=== PATIENT | male | born 1985 | race Caucasian/White ===

== ENCOUNTER 2021-02-10 20:17 | Emergency (ER) | payer SELFPAY ==
[2021-02-10 20:37] LABS: Urine Blood Negative (Negative); Urine Glucose Negative (Negative); Urine Protein Negative (Negative); Urine Specific Gravity <=1.005 (1.005-1.030); Urine pH 6.5 (5.0-7.0)
[2021-02-10 20:38] LABS: Basophils % 0.3 % (0-1.3); Hematocrit 41.3 % (39.6-49.0); Lymphocytes % 26.6 % (15.3-44.8); MPV 7.5 fL (7.6-11.3)
[2021-02-10 20:50] LABS: Protime INR 0.99
[2021-02-10 20:55] LABS: Barbiturates NEGATIVE (NEGATIVE); Benzodiazepines NEGATIVE (NEGATIVE); Cocaine NEGATIVE (NEGATIVE); METHAMPHETAM NEGATIVE (NEGATIVE); Methadone NEGATIVE (NEGATIVE); Opiates NEGATIVE (NEGATIVE); Phencyclidine NEGATIVE (NEGATIVE); THC Cannibis NEGATIVE (NEGATIVE)
[2021-02-10] MEDS ORDERED: NA CHLORIDE 0.9% 1,000 ML ONE (20:58)
[2021-02-10] MEDS ORDERED: ONDANSETRON 4 MG/2 ML VIAL ONE (20:58)
[2021-02-10 21:01] LABS: ALT/SGPT 55 U/L (12-78); AST/SGOT 37 U/L (15-37); Albumin 3.5 g/dL (3.4-5.0); Alkaline Phosphatase 51 U/L (45-117); BUN Blood Urea Nitrogen 9 mg/dL (7-18); Bicarbonate 22 mmol/L (21-32); Bilirubin Direct 0.1 mg/dL (0-0.2); Bilirubin Total 0.3 mg/dL (0.2-1.0); Glucose Level 121 mg/dL (74-106); Potassium 3.3 mmol/L (3.5-5.1); Protein, Total 7.2 g/dL (6.4-8.2); Sodium Level 143 mmol/L (136-145)
--- NOTE | 2021-02-11 03:47 | EDPHYS ---
Physician Documentation [facility] Name: Elias Dillard Age: 35 yrs Sex: Male : 1985 Arrival Date: 02/10/2021 Time: 20:21 Bed 6 Private MD: ED Physician Moise Williamson HPI: 02/10 20:42 This 35 yrs old Male presents to ER via EMS with complaints of overdose. rn 20:42 The patient presents with decreased responsiveness. Onset: The symptoms/episode rn began/occurred at an unknown time. Current symptoms: In the emergency department the patient's symptoms are unchanged from the initial presentation. It is unknown whether or not the patient has had similar symptoms in the past. Per EMS report, unknown specific time of ingestion, but and patient reported approx 10 seroquel and ETOH after arguing with . UNknown at this time if suicidal ideation or intentional self-harm. . Historical: - Allergies: 20:36 No Known Allergies; bb - Home Meds: 20:36 Seroquel Oral [Active]; Prozac Oral [Active]; bb - PMHx: 20:36 Depression; bb - PSHx: 20:36 Unable to obtain; bb - Immunization history:: Adult Immunizations unknown. - Social history:: Smoking status: unknown. - History obtained from: EMS. - Unable to obtain history due to: altered mental status. ROS: 20:42 Unable to obtain ROS due to altered mental status. rn Exam: 20:42 Constitutional: This is a well developed, well nourished patient who is awake, but rn somnolent Head/Face: Normocephalic, atraumatic. Eyes: Pupils equal round and reactive to light, extra-ocular motions intact. Lids and lashes normal. Conjunctiva and sclera are non-icteric and not injected. Cornea within normal limits. Periorbital areas with no swelling, redness, or edema. ENT: dry MM Cardiovascular: Regular rate and rhythm . No pulse deficits. Respiratory: No increased work of breathing, no retractions or nasal flaring. Abdomen/GI: soft, non-tender Skin: Warm, dry MS/ Extremity: Pulses equal, no cyanosis. Neurovascular intact. Full, normal range of motion. Equal circumference. Neuro: Awake, somnolent, moves all 4 extremities, + slurred speech. Vital Signs: 20:30 BP 117 / 73; Pulse 83; Resp 14 S; Temp 97.9(O); Pulse Ox 94% on R/A; Weight 81.65 kg bb (R); Height 5 ft. 8 in. (172.72 cm) (R); Pain 0/10; 21:00 BP 91 / 54; Pulse 84; Resp 14; Pulse Ox 97% on 2 lpm NC; jb4 21:45 BP 95 / 57; Pulse 95; Resp 20; Pulse Ox 99% on 2 lpm NC; jb4 22:45 BP 107 / 71; Pulse 72; Resp 16; jb4 23:15 BP 99 / 73; Pulse 72; Resp 18; Pulse Ox 97% on 2 lpm NC; jb4 02/11 00:00 BP 99 / 64; Pulse 70; Resp 17; Pulse Ox 99% on 2 lpm NC; jb4 00:45 BP 97 / 70; Pulse 72; Resp 19; Pulse Ox 98% on 2 lpm NC; jb4 01:30 BP 108 / 73; Pulse 62; Resp 16; Pulse Ox 98% on 2 lpm NC; jb4 02:15 BP 92 / 60; Pulse 68; Resp 17; Pulse Ox 96% on 2 lpm NC; jb4 03:30 BP 126 / 96; Pulse 72; Resp 16; Pulse Ox 100% on R/A; jb4 02/10 20:30 Body Mass Index 27.37 (81.65 kg, 172.72 cm) bb MDM: 02/10 20:25 Patient medically screened. rn 02/11 03:44 Differential Diagnosis: electrolyte abnormality, alcohol intoxication, volume rn depletion. Data reviewed: vital signs, nurses notes, lab test result(s), EKG, and as a result, I will discharge patient. Counseling: I had a detailed discussion with the patient and/or guardian regarding: the historical points, exam findings, and any diagnostic results supporting the discharge/admit diagnosis, lab results, the need for outpatient follow up, to return to the emergency department if symptoms worsen or persist or if there are any questions or concerns that arise at home. Response to treatment: the patient's symptoms have markedly improved after treatment, and as a result, I will discharge patient. Special discussion: I discussed with the patient/guardian in detail that at this point there is no indication for admission to the hospital. It is understood, however, that if the symptoms persist or worsen the patient needs to return immediately for re-evaluation. ED course: Pt now sober, wide awake, doesn't remember really what happened earlier, denies having suicidal ideation, reports was drunk and made a poor decision. Denies suicidal ideation or homicidal ideation. Is going to call for a ride. . 02/10 20:26 Order name: Acetaminophen rn 02/10 20:26 Order name: Basic Metabolic Panel; Complete Time: : 02/10 20:26 Order name: CBC with Diff; Complete Time: : 02/10 20:26 Order name: ETOH Level; Complete Time: : 02/10 20:26 Order name: Hepatic Function; Complete Time: : 02/10 20:26 Order name: PT-INR; Complete Time: : 02/10 20:26 Order name: Ptt, Activated; Complete Time: : 02/10 20:26 Order name: Salicylate; Complete Time: : 02/10 20:26 Order name: Urine Drug Screen; Complete Time: : 02/10 20:26 Order name: Acetaminophen Level; Complete Time: 22: [facility]DE 02/10 20:37 Order name: Urine Dipstick-Ancillary; Complete Time: : [facility] 02/10 22:21 Order name: SARS-COV-2 RT PCR; Complete Time: 22: [facility] 02/10 20:26 Order name: EKG; Complete Time: 20:27 02/10 20:26 Order name: EKG - Nurse/Tech; Complete Time: 20:49 02/10 20:26 Order name: IV Saline Lock; Complete Time: 20:37 02/10 20:26 Order name: Labs collected and sent; Complete Time: 20:37 02/10 20:26 Order name: Suicide Screening (Gregory); Complete Time: 23:22 02/10 20:26 Order name: Urine Dipstick-Ancillary (obtain specimen); Complete Time: 20:37 rn Administered Medications: 02/10 20:31 CANCELLED (unknown ingestion time and not alert enough): Charcoal (activated charcoal) rn Suspension 50 grams PO once 20:49 Drug: NS 0.9% 1000 ml Route: IV; Rate: 1000 ml; Site: right antecubital; bb 21:45 Follow up: Response: No adverse reaction; IV Status: Completed infusion; IV Intake: jb4 1000ml 20:49 Drug: Zofran (Ondansetron) 4 mg Route: IVP; Site: right antecubital; bb 21:15 Follow up: Response: No adverse reaction; Marked relief of symptoms jb4 Disposition: 02/11/21 03:46 Discharged to Home. Impression: Alcohol abuse with intoxication, Seroquel overdose. - Condition is Stable. - Discharge Instructions: Alcohol Intoxication, Drug Overdose. - Medication Reconciliation Form, Thank You Letter, Antibiotic Education, Prescription Opioid Use form. - Follow up: Private Physician; When: As needed; Reason: Recheck today's complaints, Re-evaluation by your physician. - Problem is new. - Symptoms have improved. Signatures: Dispatcher [employer] EDMS Lee Ann Junior RN RN bb Nieto, Roman, MD MD rn Bryson, James, RN RN jb4 Corrections: (The following items were deleted from the chart) 20:31 20:26 Charcoal (activated charcoal) Suspension 50 grams PO once ordered. rn rn 21:28 20:29 CORONAVIRUS+MR.LAB.BRZ ordered. [facility] EDDE 02/11 04:41 03:46 02/11/2021 03:46 Discharged to Home. Impression: Alcohol abuse with intoxication; jb4 Seroquel overdose. Condition is Stable. Forms are Medication Reconciliation Form, Thank You Letter, Antibiotic Education, Prescription Opioid Use. Follow up: Private Physician; When: As needed; Reason: Recheck today's complaints, Re-evaluation by your physician. Problem is new. Symptoms have improved. rn
--- NOTE | 2021-02-11 03:47 | ER ---
Nurse's Notes [facility] Name: Elias Dillard Age: 35 yrs Sex: Male : 1985 Arrival Date: 02/10/2021 Time: 20:21 Bed 6 Private MD: Diagnosis: Alcohol abuse with intoxication;Seroquel overdose Presentation: 02/10 20:30 Chief complaint: EMS states: they were toned out for report of pt having overdosed on bb Seroquel 100 mg he took 10 and he also has been drinking alcohol. Pt was arguing with and overdosed in a suicide attempt which pt has a past history of similar attempts. Coronavirus screen: At this time, the client does not indicate any symptoms associated with coronavirus-19. Ebola Screen: No symptoms or risks identified at this time. Initial Sepsis Screen: Does the patient meet any 2 criteria? No. Patient's initial sepsis screen is negative. Does the patient have a suspected source of infection? No. Patient's initial sepsis screen is negative. Risk Assessment: Do you want to hurt yourself or someone else? Patient reports desire/thoughts of hurting themselves or someone else. Provider notified. Onset of symptoms was February 10, 2021. 20:30 Method Of Arrival: EMS: [facility] 20:30 Acuity: IVAN 2 bb Historical: - Allergies: 20:36 No Known Allergies; bb - Home Meds: 20:36 Seroquel Oral [Active]; Prozac Oral [Active]; bb - PMHx: 20:36 Depression; bb - PSHx: 20:36 Unable to obtain; bb - Immunization history:: Adult Immunizations unknown. - Social history:: Smoking status: unknown. - History obtained from: EMS. - Unable to obtain history due to: altered mental status. Screenin:45 Abuse screen: Denies threats or abuse. Nutritional screening: No deficits noted. jb4 Tuberculosis screening: No symptoms or risk factors identified. Fall Risk None identified. Assessment: 20:30 General: Appears in no apparent distress. Lethargic. Behavior is Lethargic. Pain: jb4 Denies pain. Neuro: Level of Consciousness is lethargic, Oriented to person, place, time, situation, Speech is slurred. Cardiovascular: Patient's skin is warm and dry. Respiratory: Airway is patent Respiratory effort is even, unlabored, Respiratory pattern is regular, symmetrical. GI: No signs and/or symptoms were reported involving the gastrointestinal system. : No signs and/or symptoms were reported regarding the genitourinary system. EENT: No signs and/or symptoms were reported regarding the EENT system. Derm: Skin is intact, Skin is pink, warm \\T\\ dry. Musculoskeletal: Circulation, motion, and sensation intact. Range of motion: intact in all extremities. 21:00 Reassessment: spoke to Poison Control with the following recommendations: Monitor for bb seizures give benzos if needed, monitor and replace potassium levels, monitor LFTs and given Acetadote if LFTs and acetaminophen level is elevated. Give symptomatic support. Case # [id number]. 21:30 Reassessment: Pt is resting in bed with eyes closed, remains lethargic. Respirations jb4 are even and unlabored. remains on 2L NC. 22:30 Reassessment: Patient appears in no apparent distress at this time. No changes from jb4 previously documented assessment. Patient and/or family updated on plan of care and expected duration. Pain level reassessed. 23:00 Reassessment: [phone] Gay Cho. ca1 02/11 00:00 Reassessment: Patient appears in no apparent distress at this time. Patient and/or jb4 family updated on plan of care and expected duration. Pain level reassessed. Patient is alert, oriented x 3, equal unlabored respirations, skin warm/dry/pink. 01:30 Reassessment: Patient appears in no apparent distress at this time. Patient and/or jb4 family updated on plan of care and expected duration. Pain level reassessed. Patient is alert, oriented x 3, equal unlabored respirations, skin warm/dry/pink. Pt is denying that overdose was a suicide attempt. states " I was just tired of arguing and wanted to sleep.". 02:30 Reassessment: Pt is resting with eyes closed, respirations are even and unlabored with jb4 no s/s of pain or distress noted. 03:30 Reassessment: Patient appears in no apparent distress at this time. Patient and/or jb4 family updated on plan of care and expected duration. Pain level reassessed. Patient is alert, oriented x 3, equal unlabored respirations, skin warm/dry/pink. Pt denies suicidal ideations at this time. 04:30 Reassessment: Patient appears in no apparent distress at this time. Patient and/or jb4 family updated on plan of care and expected duration. Pain level reassessed. Patient is alert, oriented x 3, equal unlabored respirations, skin warm/dry/pink. Vital Signs: 02/10 20:30 BP 117 / 73; Pulse 83; Resp 14 S; Temp 97.9(O); Pulse Ox 94% on R/A; Weight 81.65 kg bb (R); Height 5 ft. 8 in. (172.72 cm) (R); Pain 0/10; 21:00 BP 91 / 54; Pulse 84; Resp 14; Pulse Ox 97% on 2 lpm NC; jb4 21:45 BP 95 / 57; Pulse 95; Resp 20; Pulse Ox 99% on 2 lpm NC; jb4 22:45 BP 107 / 71; Pulse 72; Resp 16; jb4 23:15 BP 99 / 73; Pulse 72; Resp 18; Pulse Ox 97% on 2 lpm NC; jb4 02/11 00:00 BP 99 / 64; Pulse 70; Resp 17; Pulse Ox 99% on 2 lpm NC; jb4 00:45 BP 97 / 70; Pulse 72; Resp 19; Pulse Ox 98% on 2 lpm NC; jb4 01:30 BP 108 / 73; Pulse 62; Resp 16; Pulse Ox 98% on 2 lpm NC; jb4 02:15 BP 92 / 60; Pulse 68; Resp 17; Pulse Ox 96% on 2 lpm NC; jb4 03:30 BP 126 / 96; Pulse 72; Resp 16; Pulse Ox 100% on R/A; jb4 02/10 20:30 Body Mass Index 27.37 (81.65 kg, 172.72 cm) ED Course: 02/10 20:21 Patient arrived in ED. mw2 20:25 Moise Williamson MD is Attending Physician. rn 20:30 Arm band placed on Patient placed in an exam room, on a stretcher, on oxygen, on bb engine monitor, on pulse oximetry. 20:30 Maintain EMS IV. Dressing intact. Good blood return noted. Site clean \\T\\ dry. Gauge \\T\\ bb site: 18 g R AC. 20:30 Initial lab(s) drawn, by me, sent to lab. bb 20:35 Triage completed. bb 20:45 Patient has correct armband on for positive identification. Placed in gown. Bed in low jb4 position. Call light in reach. Side rails up X 1. site monitor on. Pulse ox on. NIBP on. 23:21 Ric Grover, RN is Primary Nurse. jb4 02/11 04:40 No provider procedures requiring assistance completed. IV discontinued, intact, jb4 bleeding controlled, No redness/swelling at site. Pressure dressing applied. Administered Medications: 02/10 20:31 CANCELLED (unknown ingestion time and not alert enough): Charcoal (activated charcoal) rn Suspension 50 grams PO once 20:49 Drug: NS 0.9% 1000 ml Route: IV; Rate: 1000 ml; Site: right antecubital; bb 21:45 Follow up: Response: No adverse reaction; IV Status: Completed infusion; IV Intake: jb4 1000ml 20:49 Drug: Zofran (Ondansetron) 4 mg Route: IVP; Site: right antecubital; bb 21:15 Follow up: Response: No adverse reaction; Marked relief of symptoms jb4 Intake: 21:45 IV: 1000ml; Total: 1000ml. jb4 Outcome: 02/11 03:46 Discharge ordered by . rn 04:40 Discharged to home ambulatory, with family. jb4 04:40 Condition: stable 04:40 Discharge instructions given to patient, Instructed on discharge instructions, follow up and referral plans. Demonstrated understanding of instructions, follow-up care. 04:41 Patient left the ED. jb4 Signatures: Lee Ann Junior RN RN bb Nieto, Roman, MD MD rn Bryson, James, RN RN jb4 Law Russell mw2 Meghan Appiah RN RN ca1 Corrections: (The following items were deleted from the chart) 02: 01:30 Reassessment: Patient appears in no apparent distress at this time. Patient jb4 and/or family updated on plan of care and expected duration. Pain level reassessed. Patient is alert, oriented x 3, equal unlabored respirations, skin warm/dry/pink. jb4
[2021-02-11 04:48] VITALS: TEMP 97.9
[2021-02-11 05:01] VITALS: BP 126/96; O2SAT 100
== END 2021-02-11 04:41 | disposition home or self-care (01) ==
LOC: ER 20:17
DX: T43.591A Poisoning by other antipsychotics and neuroleptics, accidental (unintentional), initial encounter (principal); F10.129 Alcohol abuse with intoxication, unspecified; Z20.822 Contact with and (suspected) exposure to COVID-19; F32.9 Major depressive disorder, single episode, unspecified; Y90.8 Blood alcohol level of 240 mg/100 ml or more
CPT/HCPCS: 36415; 80048; 80076; 80307; 80320; 80329; 81003; 85025; 85610; 85730; 93005; 96361; 96374; 99285; J2405; J7030; U0003

== ENCOUNTER 2023-02-06 02:13 | Emergency (ER) | payer SELFPAY ==
--- OUTSIDE RECORDS SUMMARY | 2023-02-06 02:16 | XMS REPORT | Continuity of Care Document ---
:1985 Author Organization [facility] t Address [address] [place] [address] Care Team Providers Name Role Phone Pcp, Patient Does Not Have A Primary Care Physician [phone] Doctor Unassigned, Happy Attending Clinician Unavailable JOSE FALCON Attending Clinician Unavailable Jose Falcon DO Attending Clinician JOSE FALCON Admitting Clinician Unavailable Problems Condition Condition Condition Status Onset Resolution Last Treating Co mments Source Name Details Category Date Date Treatment Clinician Date No known No known Disease Unive rs active active ity of problems problems [facility] Allergies, Adverse Reactions, Alerts Allergy Allergy Status Severity Reaction(s) Onset Inactive Treating Comm ents Source Name Type Date Date Clinician NO KNOWN Drug Active Univers ALLERGIE Class ity of [facility] Social History Social Habit Start Date Stop Date Quantity Comments Source Exposure to Not sure [facility] SARS-CoV-2 (event) Medica l Branch Sex Assigned At [birth year] [facility] 00:00:00 00:00:00 [facility] Smoking Status Start Date Stop Date Source Unknown if ever smoked [facility] Medications Ordered Filled Start Stop Current Ordering Indication Dosage Frequency Signature Comments Components Source Medication Medication Date Date Medication? Clinician (SIG) Name Name meclizine 2018-0 Yes 25mg Take 1 Univer s 25 mg 7-26 tablet by ity of tablet 00:00: mouth [place] 00 every 6 Medical (six) Branch hours. meclizine 2018-0 Yes 25mg Take 1 Univer s 25 mg 7-26 tablet by ity of tablet 00:00: mouth [place] 00 every 6 Medical (six) Branch hours. pantoprazol 2015-0 Yes 40mg Take 1 Tab Univers e 4-11 by mouth ity of (PROTONIX) 00:00: daily. [place] 40 mg EC 00 Medical tablet Branch pantoprazol 0 Yes 40mg Take 1 Tab Univers e 4-11 by mouth ity of (PROTONIX) 00:00: daily. [place] 40 mg EC 00 Medical tablet Branch Vital Signs Vital Name Observation Time Observation Value Comments Source Systolic blood 2021-08-31 21:00:00 136 mm[Hg[facility] 2021-08-31 21:00:00 102 mm[Hg] [facility] Heart rate 2021-08-31 21:00:00 72 /min [facility] Body temperature 2021-08-31 21:00:00 37.17 Valerie [facility] Res[facility] rate 2021-08-31 21:00:00 14 /min [facility] Oxygen saturation in 2021-08-31 21:00:00 97 /min [facility] blood by [facility] Pulse oximetry Branch Body height 2021-08-31 18:10:00 175.3 cm [facility] Body weight 2021-08-31 18:10:00 79.379 kg [facility] BMI 2021-08-31 18:10:00 25.84 kg/m2 [facility] Procedures Procedure Date / Time Performed Performing Clinician Sourc e EXTERNAL PROVIDER - 2022-01-04 05:01:00 Doctor Unassigned, No Un [facility] ADC REFERRAL Name Medical Branch TROPONIN I 2021-08-31 20:18:00 Jose Falcon [facility] XR CHEST 1 VW 2021-08-31 18:49:38 Singer [facility] TROPONIN I 2021-08-31 18:39:00 Singer [facility] COMP. METABOLIC PANEL 2021-08-31 18:39:00 Jose Falcon [facility] ([id number]) [facility] CBC WITH DIFF 2021-08-31 18:39:00 Singer [facility] URINALYSIS 2021-08-31 18:39:00 Jose Falcon o f [facility] RAPID INFLUENZA A/B 2021-08-31 18:39:00 Jose Falcon ty of [facility] N-TERMINAL PRO-BNP 2021-08-31 18:39:00 Jose Falcon y of [facility] COVID-19 (ID NOW RAPID 2021-08-31 18:39:00 Jose Falcon [facility] TESTING) Medical Branch NOTICE OF PRIVACY 2021-08-31 17:55:24 Doctor Unassigned, No Univ [facility] PRACTICES Name [facility] CONSENT/REFUSAL FOR 2021-08-31 17:55:06 Doctor Unassigned, No [facility] DIAGNOSIS AND Name [facility] TREATMENT Encounters Start End Encounter Admission Attending Care Care Encounter Source Date/Time Date/Time Type Type Clinicians Facility Department ID 2022-11-03 2022-11-03 Outpatient [facility] [id number] [place] 17:47:12 17:47:12 [id number] [place] 2022-07-13 2022-07-13 Outpatient [facility] [id number] [place] 10:31:04 10:31:04 [id number] [place] 2022-01-04 2022-01-04 Orders Doctor ISAREL [id number] Univers 00:00:00 00:00:00 Only Unassigned, FIDEL [id number] ity of Happy [facility] [id number] Jose [id number] [facility] 009 Branch 2021-08-31 2021-08-31 Emergency X SINGER KYALLEGRA ERT [id number] Univers 12:11:00 15:40:00 JOSE davidson [facility] 2021-08-31 2021-08-31 Emergency Singer KYALLEGRA [id number] Univers 12:11:00 15:40:00 Jose ACOSTA [id number] i ty [facility] [id number] [facility] [id number] [facility] 084 Branch Results Test Description Test Time Test Comments Results Result Comments Source LIPID PANEL 2022-07-14 05:21:52 Test Item Value Reference Range Interpretation Comme nts CHOLESTEROL (test code = 2210) 222 MG/DL <200 H TRIGLYCERIDES (test code = 2232) 202 MG/DL <150 H HDL CHOLESTEROL (test code = 94 MG/DL >39 2219) CALC LDL CHOL (test code = 2237) 99 MG/DL <100 NOTE: CALCULATED LDL IS BASED ON TANNER-MUÑOZ METHOD WHICHINCLUDES A DJUSTABLE TRIGLYCERIDE:VL DL CHOLESTEROL RATIO.THIS FACT OR VARIES BY MEASURED TRIGLY CERIDE AND NON-HDLCHOLESTE ROL CONCENTRATIONS WITH INCREASED CALCULATED LDL SEENIN HIGHER T RIGLYCERIDE OR LOWER NON-HDL S PECIMENS. FOR MOREINFORMATION , SEE CLIENT ANNOUNCEMENT AT [email or web address] LDL/HDL (test code = 1.05 RATIO <3.55 2237) COMPREHENSIVE METABOLIC [id number] 05:21:52 Test Item Value Reference Range Interpretation Comments GLUCOSE (test code = 96 MG/DL 70-99 2216) BUN (test code = 10 MG/DL 6-20 2207) CREATININE (test 0.89 MG/DL 0.80-1.40 code = 2214) eGFR (2020 CKD-EPI) 114 >60 (test code = 67884) ML/MIN/1.73 CALC BUN/CREAT (test 11 RATIO 6-28 code = 2235) SODIUM (test code = 142 MEQ/L 976-154 6642) POTASSIUM (test code 4.7 MEQ/L 3.5-5.4 = 2227) CHLORIDE (test code 104 MEQ/L 95-107 = 2214) CARBON DIOXIDE (test 24 MEQ/L 19-31 code = 2206) CALCIUM (test code = 9.8 MG/DL 8.5-10.5 2208) PROTEIN, TOTAL (test 7.5 G/DL 6.1-8.3 code = 222) ALBUMIN (test code = 4.5 G/DL 3.5-5.2 2200) CALC GLOBULIN (test 3.0 G/DL 1.9-3.7 code = 2240) CALC A/G RATIO (test 1.5 RATIO 1.0-2.6 code = 2234) BILIRUBIN, TOTAL 0.4 MG/DL See_Comment [Automated message] (test code = 2207) The [employer] which generated this result transmitted ref erence range: <=1.2. T he reference range was not used to int erpret this result as normal/abnormal . ALKALINE PHOSPHATASE 63 U/L 40-117 (test code = 2204) AST (test code = 47 U/L 9-50 2217) ALT (test code = 52 U/L 5-50 H UNLESS OTH ERWISE 2218) INDICATED, ALL TESTING PERFORM ED AT[facility]ICAL PATH [facility]LOGY LAB[facility]ATORIES, [facility]. [address] [place], [place] [id number] [place] [address] DIRECTOR: CHARLEY OH M.D. CLIA NUMBER [id number] CAP ACCREDITATION N O. [id number] TSH, THIRD [id number] 06:44:56 Test Item Value Reference Range Interpretation Comments TSH, THIRD GENERATION (test code 1.400 UIU/ML 0.400-4.100 = 2820) COMPREHENSIVE METABOLIC [id number] 04:58:59 Test Item Value Reference Range Interpretation Comments GLUCOSE (test code = 110 MG/DL 70-99 H 2216) BUN (test code = 10 MG/DL 6-20 2207) CREATININE (test 0.88 MG/DL 0.80-1.40 code = 221) eGFR (2020 CKD-EPI) 115 >60 (test code = 75690) ML/MIN/1.73 CALC BUN/CREAT (test 11 RATIO 6-28 code = 2235) SODIUM (test code = 138 MEQ/L 912-233 0460) POTASSIUM (test code 4.1 MEQ/L 3.5-5.4 = 2227) CHLORIDE (test code 101 MEQ/L 95-107 = 2214) CARBON DIOXIDE (test 22 MEQ/L 19-31 code = 2206) CALCIUM (test code = 9.9 MG/DL 8.5-10.5 2208) PROTEIN, TOTAL (test 7.8 G/DL 6.1-8.3 code = 2229) ALBUMIN (test code = 4.8 G/DL 3.5-5.2 2200) CALC GLOBULIN (test 3.0 G/DL 1.9-3.7 code = 2240) CALC A/G RATIO (test 1.6 RATIO 1.0-2.6 code = 2234) BILIRUBIN, TOTAL 1.0 MG/DL See_Comment [Automated message] (test code = 2207) The syste m which generated this result transmit cyn reference range : <=1.2. The refe rence range was not u sed to interpret th is result as normal/abnormal . ALKALINE PHOSPHATASE 66 U/L 40-112 (test code = 2203) AST (test code = 72 U/L 9-50 H 2217) ALT (test code = 66 U/L 5-50 H 2218) LIPID [id number] 04:58:59 Test Item Value Reference Range Interpretation Comments CHOLESTEROL (test 217 MG/DL <200 H code = 2210) TRIGLYCERIDES (test 141 MG/DL <150 code = 2232) HDL CHOLESTEROL (test 97 MG/DL >39 code = 2220) CALC LDL CHOL (test 96 MG/DL <100 NOTE: C ALCULATED LDL code = 2237) IS BASED ON TANNER-MUÑOZ METHOD WHICHINCLUDES ADJUSTABLE TRIGLYCERIDE:VL DL CHOLESTEROL RAT IO.THIS FACTOR VARIES B Y MEASURED TRIGLY CERIDE AND NON-HDLCHOL ESTEROL CONCENTRATIONS WITH INCREASED CALCU LATED LDL SEENIN HIGH ER TRIGLYCERIDE OR LOWER NON-HDL SPECIME NS. FOR MOREINFORMATION , SEE CLIENT ANNOUNCE MENT AT [email or web address] [email or web address] LDL/HDL 0.99 RATIO <3.55 UNLESS O THERWISE (test code = 2237) INDICATED , ALL TESTING PERFORMED [facility] PATH[facility]Y [facility]IES, [facility]. [address] [place] [id number] [place] [address] CHRISTINE DIRECTOR: CHARLEY OH M.D. CLIA NUMBER [id number] CAP ACCREDITATION N O. [id number] CBC W/AUTO DIFF WITH [id number] 04:53:25 Test Item Value Reference Range Interpretation Comments WBC (test code = 8.0 K/UL 3.5-11.0 1001) RBC (test code = 5.07 M/UL 4.50-6.10 1002) HEMOGLOBIN (test code 16.5 G/DL 13.5-17.0 = 1003) HEMATOCRIT (test code 46.3 % 40.0-51.0 = 1004) MCV (test code = 91.3 fL 80.0-99.0 1005) MCH (test code = 32.5 PG 25.0-33.0 1006) MCHC (test code = 35.6 G/DL 31.0-36.0 1007) RDW (test code = 11.4 % 11.5-15.0 L 1038) NEUTROPHILS (test 70.5 % code = 1008) LYMPHOCYTES (test 18.8 % code = 1010) MONOCYTES (test code 7.4 % = 1011) EOSINOPHILS (test 2.1 % code = 1012) BASOPHILS (test code 0.9 % = 1013) IMMATURE GRANULOCYTES 0.3 % (test code = 1036) NUCLEATED RBCS (test 0.0 /100 WBC'S See_Comment [Aut omated code = 1065) message] The sy stem which generated this result transmitted reference range : 0.0. The refere nce range was not u sed to interpret th is result as normal/abnormal . PLATELET COUNT (test 288 K/UL 130-400 code = 1015) ABSOLUTE NEUTROPHILS 5.61 K/UL 1.50-7.50 (test code = 1066) ABSOLUTE LYMPHOCYTES 1.50 K/UL 1.00-4.00 (test code = 1067) ABSOLUTE MONOCYTES 0.59 K/UL 0.20-1.00 (test code = 1068) ABSOLUTE EOSINOPHILS 0.17 K/UL 0.00-0.50 (test code = 1040) ABSOLUTE BASOPHILS 0.07 K/UL 0.00-0.20 (test code = 1069) ABS IMMATURE 0.02 K/UL 0.00-0.10 GRANULOCYTES (test code = 1020) ABS NUCLEATED RBCS 0.00 K/UL 0.00-0.11 (test code = 34333) TROPONIN [id number] 20:59:03 Test Item Value Reference Interpretation Comments Range TROPONIN I (test 0.010 ng/mL See_Comment [Automated code = 3357378162) message] The system which generated this result transmitted reference range : <=0.034. The reference range was not used to interpret this result as normal/abnormal . KATELYNN (test code = Reference (Normal) KATELYNN) Range (defined by the 99th percentile reference limit): <= 0.034 ng/mL Note: Cardiac troponin begins to rise 3-4 hours after the onset of ischemia. Repeat in 4-6 hours if the sample was drawn within 3-4 hours of the onset of the symptom and found normal. Diagnosis of myocardial injury is made with acute changes in cTn concentrations with at least one serial sample above the 99th percentile upper reference limit (URL), taken together with the patient's clinical presentation. Biotin has been reported to cause a negative bias, interpret results relative to patient's use of biotin. Lab Interpretation Normal (test code = 71352-6) [id number] 19:34:29 Test Item Value Reference Interpretation Comments Range TROPONIN I (test 0.000 ng/mL See_Comment [Automated code = 1445810287) message] The system which generated this result transmitted reference range : <=0.034. The reference range was not used to interpret this result as normal/abnormal . KATELYNN (test code = Reference (Normal) KATELYNN) Range (defined by the 99th percentile reference limit): <= 0.034 ng/mL Note: Cardiac troponin begins to rise 3-4 hours after the onset of ischemia. Repeat in 4-6 hours if the sample was drawn within 3-4 hours of the onset of the symptom and found normal. Diagnosis of myocardial injury is made with acute changes in cTn concentrations with at least one serial sample above the 99th percentile upper reference limit (URL), taken together with the patient's clinical presentation. Biotin has been reported to cause a negative bias, interpret results relative to patient's use of biotin. Lab Interpretation Normal (test code = 56466-9) [id number] 19:31:06 Test Item Value Reference Range Interpretation Comments NT-proBNP (test code 13 pg/mL See_Comment [Autom ated = 1122768979) message] The system which generated this result transmitted reference range : <=125. The reference range was not used to interpret this result as normal/abnormal . KATELYNN (test code = KATELYNN) Biotin has been reported to cause a negative bias, interpret results relative to patient's use of biotin. Lab Interpretation Normal (test code = 78005-4) [facility]. METABOLIC PANEL ([id number])2021-08-31 19:22:23 Test Item Value Reference Range Interpretation Comments NA (test code = 133 mmol/L 135-145 L 6477711316) K (test code = 4.3 mmol/L 3.5-5.0 1420543645) CL (test code = 103 mmol/L 98-108 8765231897) CO2 TOTAL (test code = 22 mmol/L 23-31 L 2728327879) AGAP (test code = 2-16 1411161809) BUN (test code = 13 mg/dL 7-23 6006734280) GLUCOSE (test code = 112 mg/dL 70-110 H 9321063880) CREATININE (test code = 0.83 mg/dL 0.60-1.25 5505770674) TOTAL BILI (test code = 1.1 mg/dL 0.1-1.2 1733338975) CALCIUM (test code = 9.9 mg/dL 8.6-10.6 4542480994) T PROTEIN (test code = 8.1 g/dL 6.3-8.2 7172557254) ALBUMIN (test code = 5.0 g/dL 3.5-5.0 5518870631) ALK PHOS (test code = 69 U/L 34-122 6989994299) ALTv (test code = 74 U/L 5-50 H 1742-6) AST(SGOT) (test code = 68 U/L 13-40 H 6875347201) eGFR (test code = mL/min/1.73m2 9501207527) KATELYNN (test code = KATELYNN) Association of Glomerular Filtration Rate (GFR) and Staging of Kidney Disease* + --+ --+ ------+| GFR (mL/min/1.73 m2) ?| With Kidney Damage ?| ?Without Kidney Damage+ --------+ --------+ +| ?>90 ?| ?Stage one ?| ? Normal ?+ ---+ ---+ -------+| ?60-89 ?| ?Stage two ?| ? Decreased GFR ? + --+ --+ ------+| ?30-59 ?| ?Stage three ?| ? Stage three ? + --+ --+ ------+| ?15-29 ?| ?Stage four ? | ? Stage four ?+ ---+ ---+ -------+| ?<15 (or dialysis) ? ?| ?Stage five ? | ? Stage five ?+ ---+ ---+ -------+ *Each stage assumes the associated GFR level has been in effect for at least three months. ?Stages 1 to 5, with or without kidney disease, indicate chronic kidney disease. Notes: Determination of stages one and two (with eGFR >59mL/min/1.73 m2) requires estimation of kidney damage for at least three months as defined by structural or functional abnormalities of the kidney, manifested by either:Pathological abnormalities or Markers of kidney damage (including abnormalities in the composition of the blood or urine or abnormalities in imaging tests). Lab Interpretation Abnormal (test code = 55533-7) [facility] WITH [id number] 19:02:44 Test Item Value Reference Range Interpretation Comments WBC (test code = See_Comment [Automated 8190-2) message] The sy stem which generated this result transmitted reference range : 4.20 - 10.70 10*3/?L. The reference range was not used to interpret this result as normal/abnormal . RBC (test code = See_Comment [Automated 789-8) message] The sy stem which generated this result transmitted reference range : 4.26 - 5.52 10*6/?L. The reference range was not used to interpret this result as normal/abnormal . HGB (test code = 16.4 g/dL 12.2-16.4 718-7) HCT (test code = 47.3 % 38.4-49.3 4544-3) MCV (test code = 94.6 fL 81.7-95.6 787-2) MCH (test code = 32.8 pg 26.1-32.7 H 785-6) MCHC (test code = 34.7 g/dL 31.2-35.0 786-4) RDW-SD (test code = 40.4 fL 38.5-51.6 32704-5) RDW-CV (test code = 11.6 % 12.1-15.4 L 788-0) PLT (test code = See_Comment [Automated 777-3) message] The sy stem which generated this result transmitted reference range : 150 - 328 10*3/ ?L. The reference r saloni was not used to interpret this result as normal/abnormal . MPV (test code = 9.4 fL 9.8-13.0 L 95539-1) NRBC/100 WBC (test See_Comment [Automat ed code = 3995410243) message] The system which generated this result transmitted reference range : 0.0 - 10.0 /100 WBCs. The refer ence range was not u sed to interpret th is result as normal/abnormal . NRBC x10^3 (test code <0.01 See_Comment [Auto mated = 3040105450) message] The s ystem which generated this result transmitted reference range : 10*3/?L. The reference range was not used to interpret this result as normal/abnormal . GRAN MAT (NEUT) % 74.5 % (test code = 770-8) IMM GRAN % (test code 0.30 % = 6286055000) LYMPH % (test code = 14.1 % 736-9) MONO % (test code = 9.2 % 5905-5) EOS % (test code = 1.1 % 713-8) BASO % (test code = 0.8 % 706-2) GRAN MAT x10^3(ANC) 5.33 10*3/uL 1.99-6.95 (test code = 0780057667) IMM GRAN x10^3 (test <0.03 0.00-0.06 code = 4184729008) LYMPH x10^3 (test code 1.01 10*3/uL 1.09-3.23 L = 731-0) MONO x10^3 (test code 0.66 10*3/uL 0.36-1.02 = 742-7) EOS x10^3 (test code = 0.08 10*3/uL 0.06-0.53 711-2) BASO x10^3 (test code 0.06 10*3/uL 0.01-0.09 = 704-7) Lab Interpretation Abnormal (test code = 45875-6) [facility]"
[2023-02-06] MEDS ORDERED: THIAMINE HCL 100 MG TABLET ONE (02:49)
[2023-02-06] MEDS ORDERED: LORAZEPAM 1 MG TABLET ONE (02:50)
[2023-02-06 03:14] LABS: Protime INR 0.89
[2023-02-06 03:17] LABS: Absolute Lymphocytes (CBC) 2.7 K/uL (0.7-4.9); Hematocrit 40.5 % (39.6-49.0); MCV 96.1 fL (80-100); MPV 6.9 fL (7.6-11.3); RBC Red Blood Cell Count 4.22 M/uL (4.33-5.43)
[2023-02-06 03:38] LABS: ALT/SGPT 77 U/L (16-61); Albumin 3.7 g/dL (3.4-5.0); Alkaline Phosphatase 68 U/L (45-117); BUN Blood Urea Nitrogen 12 mg/dL (7-18); Bicarbonate 21 mEq/L (21-32); Bilirubin Total 0.3 mg/dL (0.2-1.0); Glomerular Filtration Rate 110 ml/min (=/>90); Glucose Level 109 mg/dL (74-106); Protein, Total 7.8 g/dL (6.4-8.2); Sodium Level 136 mEq/L (136-145)
[2023-02-06 03:39] LABS: AST/SGOT 91 U/L (15-37); Bilirubin Direct < 0.1 mg/dL (0-0.2); Potassium 3.5 mEq/L (3.5-5.1)
[2023-02-06 05:07] LABS: Barbiturates NEGATIVE (NEGATIVE); Benzodiazepines NEGATIVE (NEGATIVE); Cocaine NEGATIVE (NEGATIVE); METHAMPHETAM POSITIVE (NEGATIVE); Methadone NEGATIVE (NEGATIVE); Opiates NEGATIVE (NEGATIVE); Phencyclidine NEGATIVE (NEGATIVE); THC Cannibis NEGATIVE (NEGATIVE)
[2023-02-06 05:25] LABS: Specific Gravity 1.005 (1.005-1.030); Urine Bilirubin NEGATIVE (Negative); Urine Blood Negative (Negative); Urine Clarity Clear (Clear); Urine Color Colorless (Yellow); Urine Glucose NEGATIVE (Negative); Urine Protein NEGATIVE (Negative); Urine Urobilinogen Normal (Normal)
--- NOTE | 2023-02-06 11:37 | ER ---
Nurse's Notes [facility] Name: Elias Dillard Age: 37 yrs Sex: Male : 1985 Arrival Date: 02/06/2023 Time: 02:13 Bed 16 Private MD: Diagnosis: Alcohol abuse with intoxication;Adverse effect of amphetamines Presentation: 02/06 02:31 Coronavirus screen: At this time, the client does not indicate any symptoms associated as6 with coronavirus-19. Ebola Screen: No symptoms or risks identified at this time. Initial Sepsis Screen: Does the patient meet any 2 criteria? No. Patient's initial sepsis screen is negative. Does the patient have a suspected source of infection? No. Patient's initial sepsis screen is negative. Risk Assessment: Do you want to hurt yourself or someone else? Patient reports desire/thoughts of hurting themselves or someone else. Provider notified. 02:36 Chief complaint: police were called by the patient's sister because the patient was kd3 outside with a knife threatening his life. When police arrived, patient was noted to be intoxicated but being cooperative. when the bolting machine operator attempted to make a safety plan and divert to a facility in [place], pt started making suicidal and homicidal threats. Pt was then transferred to ED. 02:36 Method Of Arrival: Law Enforcement: [employer] [place] kd3 02:36 Acuity: IVAN 2 kd3 02:38 Onset of symptoms was February 06, 2023. as6 02:38 Acuity: IVAN 2 as6 02:38 Method Of Arrival: Law Enforcement: [place] as6 Historical: - Allergies: 02:37 Morphine; as6 - PMHx: 02:37 Depression; as6 - PSHx: 02:37 Appendectomy; as6 - Immunization history:: Adult Immunizations not up to date. - Social history:: Smoking status: Patient reports the use of cigarette tobacco products, smokes two packs cigarettes per day. Patient uses alcohol, on a daily basis. - Family history:: not pertinent. Screenin:40 [facility] ED Fall Risk Assessment (Adult) Score/Fall Risk Level 0 - 2 = Low Risk. Abuse as6 screen: Denies threats or abuse. Denies injuries from another. Nutritional screening: No deficits noted. Tuberculosis screening: No symptoms or risk factors identified. Assessment: 02:15 General: Appears in no apparent distress. Behavior is cooperative, Smells of alcohol. as6 Pain: Denies pain. Cardiovascular: Capillary refill < 3 seconds Patient's skin is warm and dry. Respiratory: Respiratory effort is even, unlabored, Respiratory pattern is regular, symmetrical. 04:15 General: po fluids and snacks provided, pt active in room stating "I need my phone, as6 y'all can't keep me here, I want to go home" . 06:15 General: pt resting at this time, NAD, respirations even and non labored . as6 07:00 Reassessment: Patient appears in no apparent distress at this time. No changes from ko1 previously documented assessment. Patient and/or family updated on plan of care and expected duration. Pain level reassessed. Patient is alert, oriented x 3, equal unlabored respirations, skin warm/dry/pink. 07:00 Reassessment: Patient states that "all of my answers to those questions ya'll keep ko1 asking me is NO". 08:00 Reassessment: sleeping. ko1 09:00 Reassessment: patient remains asleep. ko1 10:00 Reassessment: patient is sleeping. ko1 11:00 Reassessment: patient sleeping. ko1 12:30 Reassessment: Patient appears in no apparent distress at this time. Patient and/or iw family updated on plan of care and expected duration. Pain level reassessed. Patient is alert, oriented x 3, equal unlabored respirations, skin warm/dry/pink. Patient states feeling better. Patient states symptoms have improved. Psych: 02:15 [place] Suicide Severity Screening: In the past month, have you wished you were as6 or wished you could go to sleep and not wake up? Patient responds "yes." Based off the client's responses additional C-SSRS screening is required. "In the past month, have you actually had any thoughts of killing yourself?" Patient responds "yes." Based off the client's response additional [place] suicide severity screening questions to be further documented on paper forms. "In your lifetime, have you ever done anything, started to do anything, or prepared to do anything to end your life?" Patient responds "yes." Patient reports suicidal intent within 3 past months. Patient reports suicidal intent occurred greater than 3 months prior. Subjective: Patient's mood is elevated, Delusions are denied, Hallucinations are denied Having thoughts of suicide. Plan for suicide is shoot himself. Objective: Patient is cooperative, Speech is normal, rambling, Affect is appropriate. Interventions: Removed personal items and placed in bag. Patient placed in hospital gown. Searched person for dangerous items. Belonging list filled out. Safety Checks: Personal items have been removed. Door is open. No visitors are present at this time. Patient uses 6 pack of beer, daily. Last use was 2 hours ago. Patient does not have a history of DTs. Commitment: Patient will be an involuntary commitment. Commitment papers completed. Vital Signs: 02:38 BP 108 / 80; Pulse 110; Resp 18 S; Temp 97.9(O); Pulse Ox 99% on R/A; Weight 89.36 kg as6 (R); Height 5 ft. 9 in. (R); Pain 0/10; 07:22 BP 134 / 82; Pulse 98; Resp 16; Temp 97.6; Pulse Ox 100% on R/A; ko1 12:30 BP 132 / 87; Pulse 89; Resp 16; Temp 98; Pulse Ox 100% on R/A; iw 02:38 Body Mass Index 29.09 (89.36 kg, 175.26 cm) as6 02:38 Pain Scale: Adult as6 ED Course: 02:16 Patient arrived in ED. as6 02:21 Slim Leong MD is Attending Physician. sp4 02:31 Jhon Alcala, RN is Primary Nurse. as6 02:31 Arm band placed on. as6 02:40 Triage completed. as6 03:12 Inserted saline lock: 20 gauge in left antecubital area, using aseptic technique. Blood as6 collected. 03:13 Bed in low position. Patient is placed in psych hold. as6 07:59 Attending Physician role handed off by Slim Leong MD ms3 07:59 Luis Davidson DO is Attending Physician. ms3 08:06 Attending Physician role handed off by Luis Davidson DO sp4 08:06 Slim Leong MD is Attending Physician. sp4 08:19 Attending Physician role handed off by Slim Leong MD ms3 08:19 Luis Davidson DO is Attending Physician. ms3 12:30 No provider procedures requiring assistance completed. IV discontinued, intact, iw bleeding controlled, No redness/swelling at site. Pressure dressing applied. Administered Medications: 02:52 Drug: LORazepam PO 4 mg Route: PO; as6 02:52 Drug: Thiamine PO 100 mg Route: PO; as6 Medication: 02:40 VIS not applicable for this client. as6 Outcome: 11:37 Discharge ordered by MD. ms3 12:34 Patient left the ED. nj1 12:34 Discharged to home ambulatory. iw 12:34 Condition: good 12:34 Discharge instructions given to patient, Instructed on discharge instructions, follow up and referral plans. Demonstrated understanding of instructions, follow-up care. Signatures: Elissa Gallagher, RN RN iw Luis Davidson DO DO ms3 Jhon Alcala RN RN as6 Amparo Day, RN RN kd3 Shelby Jameson RN RN ko1 Slim Leong MD MD sp4 Natacha Hong RN RN nj1 Corrections: (The following items were deleted from the chart) 03:34 03:14 General: Appears in no apparent distress. Behavior is cooperative, Smells of as6 alcohol, as6 03:34 03:14 Pain: Denies pain. as6 as6 :34 03:14 Cardiovascular: Capillary refill < 3 seconds Patient's skin is warm and dry. as6 as6 03:34 03:14 Respiratory: Respiratory effort is even, unlabored, Respiratory pattern is as6 regular, symmetrical, as6 :36 03:12 [place] Suicide Severity Screening: In the past month, have you wished you were as6 or wished you could go to sleep and not wake up? Patient responds "yes." Based off the client's responses additional C-SSRS screening is required. "In the past month, have you actually had any thoughts of killing yourself?" Patient responds "yes." Based off the client's response additional [place] suicide severity screening questions to be further documented on paper forms. "In your lifetime, have you ever done anything, started to do anything, or prepared to do anything to end your life?" Patient responds "yes." Patient reports suicidal intent within 3 past months. Patient reports suicidal intent occurred greater than 3 months prior. as6 03:36 03:12 Subjective: Patient's mood is elevated, Delusions are denied, Hallucinations are as6 denied Having thoughts of suicide. Plan for suicide is shoot himself as6 03:12 Objective: Patient is cooperative, Speech is normal, rambling, Affect is as6 appropriate, as6 03:12 Interventions: Removed personal items and placed in bag. Patient placed in as6 hospital gown. Searched person for dangerous items. Belonging list filled out. as6 03:12 Safety Checks: Personal items have been removed. Door is open. No visitors are as6 present at this time. as6 03:12 Patient uses 6 pack of beer, daily. Last use was 2 hours ago. Patient does not as6 have a history of DTs. as6 03:12 Commitment: Patient will be an involuntary commitment. Commitment papers as6 completed. as6 11:15 10:12 Reassessment: Patient appears in no apparent distress at this time. No changes ko1 from previously documented assessment. Patient and/or family updated on plan of care and expected duration. Pain level reassessed. Patient is alert, oriented x 3, equal unlabored respirations, skin warm/dry/pink. ko1
--- NOTE | 2023-02-06 11:37 | EDPHYS ---
Physician Documentation [facility] Name: Elias Dillard Age: 37 yrs Sex: Male : 1985 Arrival Date: 02/06/2023 Time: 02:13 Bed 16 Private MD: ED Physician Luis Davidson HPI: 02/06 02:21 This 37 yrs old Male presents to ER via Unassigned with complaints of sp4 Intoxication . 06:01 37-year-old male presents with acute moderate to heavy intoxication associated with sp4 threats to commit suicide. Patient reported that he wanted to commit suicide to the naval police coxswain who has come to talk to him. Patient also reported some homicidal statements to the people but no one in particular. On arrival patient is heavily intoxicated not able to provide HPI. Historical: - Allergies: 02:37 Morphine; as6 - PMHx: 02:37 Depression; as6 - PSHx: 02:37 Appendectomy; as6 - Immunization history:: Adult Immunizations not up to date. - Social history:: Smoking status: Patient reports the use of cigarette tobacco products, smokes two packs cigarettes per day. Patient uses alcohol, on a daily basis. - Family history:: not pertinent. ROS: 06:01 Constitutional: Negative for fever, chills, and weight loss, Eyes: Negative for injury, sp4 pain, redness, and discharge, Neuro: Negative for headache, weakness, numbness, tingling, and seizure, Psych: Negative for depression, anxiety, positive for alcohol intoxication, positive for emotional upset 06:01 All other systems are negative. Exam: 06:01 Constitutional: This is a well developed, well nourished patient who is awake, alert, sp4 and in no acute distress. Heavily intoxicated male, mostly cooperative, Head/Face: Normocephalic, atraumatic. Eyes: Pupils equal round and reactive to light, extra-ocular motions intact. Lids and lashes normal. Conjunctiva and sclera are not injected. Cornea within normal limits. Periorbital areas with no swelling, redness, or edema. ENT: Nares patent. No nasal discharge, no septal abnormalities noted. Tympanic membranes are normal and external auditory canals are clear. Oropharynx with no redness, swelling, or masses, exudates, or evidence of obstruction, uvula midline. Mucous membranes moist. Neck: Trachea midline, no thyromegaly or masses palpated, and no cervical lymphadenopathy. Supple, full range of motion without nuchal rigidity, or vertebral point tenderness. No Meningismus. Chest/axilla: Normal chest wall appearance and motion. Nontender with no deformity. No lesions are appreciated. Cardiovascular: Regular rate and rhythm with a normal S1 and S2. No gallops, murmurs, or rubs. Normal PMI, no JVD. No pulse deficits. Respiratory: Lungs have equal breath sounds bilaterally, clear to auscultation and percussion. No rales, rhonchi or wheezes noted. No increased work of breathing, no retractions or nasal flaring. Abdomen/GI: Soft, non-tender, with normal bowel sounds. No distension or tympany. No guarding or rebound. No evidence of tenderness throughout. Back: No spinal tenderness. No costovertebral tenderness. Skin: Warm, dry with normal turgor. Normal color with no rashes, no lesions, and no evidence of cellulitis. MS/ Extremity: Pulses equal, no cyanosis. Neurovascular intact. Full, normal range of motion. Neuro: Awake and alert, oriented to person . Cranial nerves II-XII grossly intact. Motor strength 5/5 in all extremities. Sensory grossly intact. Patient has a wobbly gait, intoxication limits exam overall no neurologic deficit Psych: Awake, alert, with orientation to person, heavily intoxicated male 06:01 ECG was reviewed by the Attending Physician. EKG time 0304, there is sinus rhythm at sp4 the rate of 84. Muscle tremor artifact. Otherwise normal EKG Vital Signs: 02:38 BP 108 / 80; Pulse 110; Resp 18 S; Temp 97.9(O); Pulse Ox 99% on R/A; Weight 89.36 kg as6 (R); Height 5 ft. 9 in. (R); Pain 0/10; 07:22 BP 134 / 82; Pulse 98; Resp 16; Temp 97.6; Pulse Ox 100% on R/A; ko1 12:30 BP 132 / 87; Pulse 89; Resp 16; Temp 98; Pulse Ox 100% on R/A; iw 02:38 Body Mass Index 29.09 (89.36 kg, 175.26 cm) as6 02:38 Pain Scale: Adult as6 MDM: 02:29 Patient medically screened. sp4 06:01 Differential Diagnosis altered mental status, Intoxication, polysubstance abuse. Data sp4 reviewed: vital signs, nurses notes, lab test result(s), EKG. 06:05 ED course: Patient has a very high alcohol level of 364 also positive for sp4 methamphetamines which explains his emotional upset on the arrival . 08:06 Transition of care: After a detail discussion of the patient's case, care is sp4 transferred to Luis Davidson DO. 08:24 Transition of care: Care assumed from Slim Leong MD. ED course: On reevaluation ms3 of patient he does not recall events from last night. Patient denies suicidal ideation or intent, homicidal ideation or intent, hallucinations.. 11:39 Counseling: I had a detailed discussion with the patient and/or guardian regarding: the ms3 historical points, exam findings, and any diagnostic results supporting the discharge/admit diagnosis, lab results, the need for outpatient follow up, to return to the emergency department if symptoms worsen or persist or if there are any questions or concerns that arise at home. Response to treatment: the patient's symptoms have resolved after treatment, the patient's condition has returned to base line, and as a result, I will discharge patient. Special discussion: I discussed with the patient/guardian in detail that at this point there is no indication for admission to the hospital. It is understood, however, that if the symptoms persist or worsen the patient needs to return immediately for re-evaluation. ED course: Discussed methamphetamine cessation with patient. Discussed patient's alcohol intake with patient. Patient to follow-up with primary care physician in 2 to 3 days. Patient denies suicidal ideation or intent, homicidal ideation or intent, hallucinations. Return precautions discussed with patient to include worsening symptoms, or any other concerns.. 02/06 03:04 Order name: Basic Metabolic Panel; Complete Time: 06: EDMS 02/06 03:04 Order name: Liver (Hepatic) Function; Complete Time: 06: EDMS 02/06 03:04 Order name: Acetaminophen Level; Complete Time: 06: EDMS 02/06 03:04 Order name: Alcohol Serum/Plasma; Complete Time: 06: EDMS 02/06 03:04 Order name: Salicylates Level; Complete Time: 06: EDMS 02/06 03:04 Order name: CBC with Automated Diff; Complete Time: 06:01 EDMS 02/06 03:04 Order name: Protime (+INR); Complete Time: 06:01 EDMS 02/06 03:04 Order name: PTT, Activated Partial Thromb; Complete Time: 06:01 EDMS 02/06 04:45 Order name: Urinalysis w/ reflexes; Complete Time: 06:01 EDMS 02/06 04:45 Order name: Urine Drug Screen; Complete Time: 06:01 EDMS 02/06 02:22 Order name: EKG; Complete Time: 06:04 sp4 02/06 07:09 Order name: Diet Finger Food; Complete Time: 07:10 as6 02/06 11:17 Order name: Diet Finger Food; Complete Time: 11:17 ko1 02/06 02:22 Order name: EKG - Nurse/Tech; Complete Time: 03:20 sp4 02/06 02:22 Order name: IV Saline Lock; Complete Time: 02:52 sp4 02/06 02:22 Order name: Labs collected and sent; Complete Time: 02:52 sp4 02/06 02:22 Order name: Suicide Precautions; Complete Time: 02:37 sp4 02/06 02:22 Order name: Suicide Screening ([place]); Complete Time: 02:37 sp4 EC:01 Rate is 84 beats/min. Rhythm is regular, Normal Sinus Rhythm. QRS [place] is Normal. [place] sp4 interval is normal. QRS interval is normal. QT interval is normal. T waves are Normal. Clinical impression: Normal ECG. Interpreted by me. Administered Medications: 02:52 Drug: LORazepam PO 4 mg Route: PO; as6 02:52 Drug: Thiamine PO 100 mg Route: PO; as6 Disposition Summary: 02/06/23 11:37 Discharge Ordered Location: Home ms3 Condition: Stable ms3 Diagnosis - Alcohol abuse with intoxication ms3 - Adverse effect of amphetamines ms3 Followup: ms3 - With: Private Physician - When: 2 - 3 days - Reason: Recheck today's complaints Discharge Instructions: - Discharge Summary Sheet ms3 - Alcohol Intoxication, [id number] ms3 - Methamphetamines Use Disorder ms3 Forms: - Medication Reconciliation Form ms3 - Thank You Letter ms3 - Antibiotic Education ms3 - Prescription Opioid Use ms3 Signatures: Dispatcher [employer] EDMS Luis Davidson DO DO ms3 Jhon Alcala, RN RN as6 Slim Leong MD MD sp4 Corrections: (The following items were deleted from the chart) 06:33 06:04 CBC+H.LAB.BRZ ordered. EDMS EDMS 06:33 06:04 PROTIME (+INR)+COAG.LAB.BRZ ordered. EDMS EDMS 06:33 06:04 PTT, ACTIVATED+COAG.LAB.BRZ ordered. EDMS EDMS 06:33 06:04 Urinalysis+U.LAB.BRZ ordered. EDMS EDMS 06:33 06:04 URINE DRUG SCREEN+UC.LAB.BRZ ordered. EDMS EDMS 06:34 06:04 ACETAMINOPHEN+C.LAB.BRZ ordered. EDMS EDMS 06:34 06:04 BASIC METABOLIC PANEL+C.LAB.BRZ ordered. EDMS EDMS 06:34 06:04 ETHANOL+C.LAB.BRZ ordered. EDMS EDMS 06:34 06:04 HEPATIC FUNCTION+C.LAB.BRZ ordered. EDMS EDMS 06:34 06:04 SALICYLATE+C.LAB.BRZ ordered. EDMS EDMS
[2023-02-06 12:45] VITALS: BP 134/82; TEMP 97.6; O2SAT 100
--- NOTE | 2023-02-07 16:01 | EKG ---
Test Date: 2023-02-06 Test Time: 03:04:08 Surgical Device Sales Representative: [employer] MEASUREMENT RESULTS: Intervals: Rate: 84 GA: 182 QRSD: 98 QT: 372 QTc: 439 [place]: P: 68 GA: 182 QRS: 81 T: 78 INTERPRETIVE STATEMENTS: Normal sinus rhythm Normal ECG Compared to ECG 11/01/2021 19:29:51 Right-axis deviation no longer present Myocardial infarct finding no longer present Electronically Signed On 02-07-23 15:57:39 CDT by Pola Kelley
== END 2023-02-06 12:34 | disposition home or self-care (01) ==
LOC: ER 02:13
DX: F10.129 Alcohol abuse with intoxication, unspecified (principal); T43.625A Adverse effect of amphetamines, initial encounter
CPT/HCPCS: 36415; 80048; 80076; 80307; 81003; 85025; 85610; 85730; 93005; 99285; G0480

== ENCOUNTER 2023-08-24 19:30 | Emergency (ER) | payer SELFPAY ==
--- OUTSIDE RECORDS SUMMARY | 2023-08-24 19:32 | XMS REPORT | Continuity of Care Document ---
:1985 Author Organization [facility] t Address [address] [facility]. [address] [place] [address] Care Team Providers Name Role Phone Pcp, Patient Does Not Have A Primary Care Physician [phone] Doctor Unassigned, [place] Attending Clinician Unavailable JOSE FALCON Attending Clinician Unavailable Jose Falcon DO Attending Clinician JOSE FALCON Admitting Clinician Unavailable Problems Condition Condition Condition Status Onset Resolution Last Treating Co mments Source Name Details Category Date Date Treatment Clinician Date No known No known Disease Unive rs active active ity of problems problems [facility] Allergies, Adverse Reactions, Alerts Allergy Allergy Status Severity Reaction(s) Onset Inactive Treating Comm ents Source Name Type Date Date Clinician NO KNOWN Drug Active Univers ALLERGIE Class ity of S [facility] Social History Social Habit Start Date Stop Date Quantity Comments Source Exposure to Not sure [facility] SARS-CoV-2 (event) Medica l Branch Sex Assigned At [birth year] [facility] 00:00:00 00:00:00 [facility] Smoking Status Start Date Stop Date Source Unknown if ever smoked [facility] Medications Ordered Filled Start Stop Current Ordering Indication Dosage Frequency Signature Comments Components Source Medication Medication Date Date Medication? Clinician (SIG) Name Name meclizine 2018-0 Yes 25mg Take 1 Univer s 25 mg 7-26 tablet by ity of tablet 00:00: mouth [place] 00 every 6 Medical (six) Branch hours. meclizine 2018-0 Yes 25mg Take 1 Univer s 25 mg 7-26 tablet by ity of tablet 00:00: mouth [place] 00 every 6 Medical (six) Branch hours. pantoprazol 2016-0 Yes 40mg Take 1 Tab Univers e 4-11 by mouth ity of (PROTONIX) 00:00: daily. [place] 40 mg EC 00 Medical tablet Branch pantoprazol 2016-0 Yes 40mg Take 1 Tab Univers e 4-11 by mouth ity of (PROTONIX) 00:00: daily. [place] 40 mg EC 00 Medical tablet Branch Vital Signs Vital Name Observation Time Observation Value Comments Source Systolic blood 2021-08-31 21:00:00 136 [facility]Hg[facility] 2021-08-31 21:00:00 102 mm[Hg[facility] Heart rate 2021-08-31 21:00:00 72 /min [facility] Body temperature 2021-08-31 21:00:00 37.17 Valerie [facility] Respiratory rate 2021-08-31 21:00:00 14 /min [facility] Oxygen saturation in 2021-08-31 21:00:00 97 /min [facility] Arterial blood by [facility] Pulse oximetry [place] Body height 2021-08-31 18:10:00 175.3 cm [facility] Body weight 2021-08-31 18:10:00 79.379 kg [facility] BMI 2021-08-31 18:10:00 25.84 kg/m2 [facility] Procedures Procedure Date / Time Performed Performing Clinician Sourc e EXTERNAL PROVIDER - 2022-01-04 05:01:00 Doctor Unassigned, No Un [facility] ADC REFERRAL Name Medical Branch TROPONIN I 2021-08-31 20:18:00 Jose Falcon [facility] XR CHEST 1 VW 2021-08-31 18:49:[address] [facility] TROPONIN I 2021-08-31 18:39:[address] [facility] COMP. METABOLIC PANEL 2021-08-31 18:39:00 Jose Falcon [facility] ([id number]) [facility] CBC WITH DIFF 2021-08-31 18:39:[address] [facility] URINALYSIS 2021-08-31 18:39:00 Jose Falcon [place] [facility] RAPID INFLUENZA A/B 2021-08-31 18:39:[address] [facility], Txi ty of [facility] N-TERMINAL PRO-BNP 2021-08-31 18:39:00 Jose Falconit y of [facility] COVID-19 (ID NOW RAPID 2021-08-31 18:39:00 Jose Falcon [facility] TESTING) [facility] NOTICE OF PRIVACY 2021-08-31 17:55:24 Doctor Unassigned, No [facility] PRACTICES Name [facility] CONSENT/REFUSAL FOR 2021-08-31 17:55:06 Doctor Unassigned, No [facility] DIAGNOSIS AND Name [facility] TREATMENT Encounters Start End Encounter Admission Attending Care Care Encounter Source Date/Time Date/Time Type Type Clinicians Facility Department ID 2022-11-03 2022-11-03 Outpatient [facility] [id number] [place] 17:47:12 17:47:12 [id number] [place] 2022-07-13 2022-07-13 Outpatient [facility] [id number] [place] 10:31:04 10:31:04 [id number] [place] 2022-01-04 2022-01-04 Orders Doctor WOOD [id number] Univers 00:00:00 00:00:00 Only Unassigned, [place] [id number] [place] [facility] [id number] [facility] [id number] [facility] 009 Branch 2021-08-31 2021-08-31 Emergency X SINGER RIALLEGRA ERT [id number] Univers 12:11:00 15:40:00 JOSE davidson [facility] 2021-08-31 2021-08-31 Emergency Singer RIALLEGRA [id number] Univers 12:11:00 15:40:00 Jose ACOSTA [id number] i ty [facility] [id number] [facility] [id number] [facility] 084 Branch Results Test Description Test Time [...] FOR MOREINFORMATION , SEE CLIENT ANNOUNCEMENT AT [email or web address] [email or web address] RATIO LDL/HDL (test code = 1.05 RATIO <3.55 2237) COMPREHENSIVE METABOLIC [id number] 05:21:52 Test Item Value Reference Range Interpretation Comments GLUCOSE (test code = 96 MG/DL 70-99 2216) BUN (test code = 10 MG/DL 6-20 2207) CREATININE (test 0.89 MG/DL 0.80-1.40 code = 2214) eGFR (2020 CKD-EPI) 114 >60 (test code = 61119) ML/MIN/1.73 CALC BUN/CREAT (test 11 RATIO 6-28 code = 2235) SODIUM (test code = 142 MEQ/L 537-856 8118) POTASSIUM (test code 4.7 MEQ/L 3.5-5.4 = 2227) CHLORIDE (test code 104 MEQ/L 95-107 = 2214) CARBON DIOXIDE (test 24 MEQ/L 19-31 code = 2206) CALCIUM (test code = 9.8 MG/DL 8.5-10.5 2208) PROTEIN, TOTAL (test 7.5 G/DL 6.1-8.3 code = 2229) ALBUMIN (test code = 4.5 G/DL 3.5-5.2 2200) CALC GLOBULIN (test 3.0 G/DL 1.9-3.7 code = 2240) CALC A/G RATIO (test 1.5 RATIO 1.0-2.6 code = 2234) BILIRUBIN, TOTAL 0.4 MG/DL See_Comment [Automated message] (test code = 2207) The syste m which generated this result transmitted ref erence range: <=1.2. T he reference range was not used to int erpret this result as normal/abnormal . ALKALINE PHOSPHATASE 63 U/L 40-117 (test code = 2204) AST (test code = 47 U/L 9-50 2217) ALT (test code = 52 U/L 5-50 H UNLESS OTH ERWISE 2218) INDICATED, ALL TESTING PERFORM ED ATCLINICAL PATH OLOG LABORATORIES, [facility]. [address] [place], [place] [id number] [place] [address] DIRECTOR: CHARLEY OH M.D. CLIA NUMBER [id number] CAP ACCREDITATION N O. [id number] TSH, THIRD [id number] 06:44:56 Test Item Value Reference Range Interpretation Comments TSH, THIRD GENERATION (test code 1.400 UIU/ML 0.400-4.100 = 2821) COMPREHENSIVE METABOLIC [id number] 04:58:59 Test Item Value Reference Range Interpretation Comments GLUCOSE (test code = 110 MG/DL 70-99 H 2216) BUN (test code = 10 MG/DL 6-20 2207) CREATININE (test 0.88 MG/DL 0.80-1.40 code = 2213) eGFR (2020 CKD-EPI) 115 >60 (test code = 85061) ML/MIN/1.73 CALC BUN/CREAT (test 11 RATIO 6-28 code = 2235) SODIUM (test code = 138 MEQ/L 825-192 3768) POTASSIUM (test code 4.1 MEQ/L 3.5-5.4 = 2227) CHLORIDE (test code 101 MEQ/L 95-107 = 2215) CARBON DIOXIDE (test 22 MEQ/L 19-31 code [...] PHOSPHATASE 66 U/L 40-112 (test code = 2204) AST (test code = 72 U/L 9-50 H 2217) ALT (test code = 66 U/L 5-50 H 2218) LIPID [id number] 04:58:59 Test Item Value Reference Range Interpretation [...] MOREINFORMATION , SEE CLIENT ANNOUNCE MENT AT [email or web address] RISK RATIO LDL/HDL 0.99 RATIO <3.55 UNLESS O THERWISE (test code = 2237) INDICATED , ALL TESTING PERFORMED [facility], [facility]. [address] [place] [id number] [place] [address] DIRECTOR: CHARLEY OH M.D. CLIA NUMBER [id number] CAP ACCREDITATION N O. [id number] CBC W/AUTO DIFF WITH [id number] 04:53:25 Test Item Value Reference Range Interpretation [...] RBCS 0.00 K/UL 0.00-0.11 (test code = 26254) TROPONIN [id number] 20:59:03 Test Item Value Reference Interpretation Comments Range TROPONIN I (test 0.010 ng/mL See_Comment [Automated code = 2584284791) message] The system which generated this result [...] biotin. Lab Interpretation Normal (test code = 51284-0) [id number]:34[facility]29 Test Item Value Reference Interpretation Comments Range TROPONIN I (test 0.000 ng/mL See_Comment [Automated code = 7136792129) message] The system which generated this result [...] biotin. Lab Interpretation Normal (test code = 19911-9) [facility] [id number] 19:31:06 Test Item Value Reference Range Interpretation Comments NT-proBNP (test code 13 pg/mL See_Comment [Autom ated = 6444621567) message] The system which generated this result transmitted reference range : <=125. The reference range was not used to interpret this result as normal/abnormal . KATELYNN (test code = KATELYNN) Biotin has been reported to cause a negative bias, interpret results relative to patient's use of biotin. Lab Interpretation Normal (test code = 46742-1) [facility] ([id number])2021-08-31 19:22:23 Test Item Value Reference Range Interpretation Comments NA (test code = 133 mmol/L 135-145 L 3672299824) K (test code = 4.3 mmol/L 3.5-5.0 3224225354) CL (test code = 103 mmol/L 98-108 5591587699) CO2 TOTAL (test code = 22 mmol/L 23-31 L 9337710392) AGAP (test code = 2-16 0956830305) BUN (test code = 13 mg/dL 7-23 2729406561) GLUCOSE (test code = 112 mg/dL 70-110 H 0730963475) CREATININE (test code = 0.83 mg/dL 0.60-1.25 3110327141) TOTAL BILI (test code = 1.1 mg/dL 0.1-1.3 1800300274) CALCIUM (test code = 9.9 mg/dL 8.6-10.6 7488623543) T PROTEIN (test code = 8.1 g/dL 6.3-8.2 3033834586) ALBUMIN (test code = 5.0 g/dL 3.5-5.0 0524104312) ALK PHOS (test code = 69 U/L 34-122 9405385451) ALTv (test code = 74 U/L 5-50 H 1742-6) AST(SGOT) (test code = 68 U/L 13-40 H 0028401737) eGFR (test code = mL/min/1.73m2 0134063181) KATELYNN (test code = KATELYNN) Association of [...] tests). Lab Interpretation Abnormal (test code = 34202-8) [facility] WITH [id number] 19:02:44 Test Item Value Reference Range Interpretation Comments WBC (test code = See_Comment [Automated 6690-2) message] The sy stem which generated this [...] RDW-SD (test code = 40.4 fL 38.5-51.6 67224-9) RDW-CV (test code = 11.6 % 12.1-15.4 L 788-0) PLT (test code = See_Comment [Automated 777-3) message] The sy stem which generated this result transmitted reference range : 150 - 328 10*3/ ?L. The reference r saloni was not used to interpret this result as normal/abnormal . MPV (test code = 9.4 fL 9.8-13.0 L 43844-9) NRBC/100 WBC (test See_Comment [Automat ed code = 7265748897) message] The system which generated this result transmitted reference range : 0.0 - 10.0 /100 WBCs. The refer ence range was not u sed to interpret th is result as normal/abnormal . NRBC x10^3 (test code <0.01 See_Comment [Auto mated = 9648518652) message] The s ystem which generated this result transmitted reference range : 10*3/?L. The reference range was not used to interpret this result as normal/abnormal . GRAN MAT (NEUT) % 74.5 % (test code = 770-8) IMM GRAN % (test code 0.30 % = 7042683675) LYMPH % (test code = 14.1 % 736-9) MONO % (test code = 9.2 % 5905-5) EOS % (test code = 1.1 % 713-8) BASO % (test code = 0.8 % 706-2) GRAN MAT x10^3(ANC) 5.33 10*3/uL 1.99-6.95 (test code = 5869198670) IMM GRAN x10^3 (test <0.03 0.00-0.06 code = 8073928707) LYMPH x10^3 (test code 1.01 10*3/uL 1.09-3.23 L = 731-0) MONO x10^3 (test code 0.66 10*3/uL 0.36-1.02 = 742-7) EOS x10^3 (test code = 0.08 10*3/uL 0.06-0.53 711-2) BASO x10^3 (test code 0.06 10*3/uL 0.01-0.09 = 704-7) Lab Interpretation Abnormal (test code = 25717-4) [facility]"
[2023-08-24 19:57] LABS: Absolute Lymphocytes (CBC) 2.2 K/uL (0.7-4.9); Hematocrit 50.7 % (39.6-49.0); Lymphocytes % 26.8 % (15.3-44.8); MCV 96.8 fL (80-100); MPV 6.5 fL (7.6-11.3); Platelets 302 thou/uL (152-406); RBC Red Blood Cell Count 5.23 M/uL (4.33-5.43)
[2023-08-24 20:06] LABS: Protime INR 0.97
[2023-08-24 20:27] LABS: ALT/SGPT 65 U/L (16-61); AST/SGOT 55 U/L (15-37); Albumin 3.9 g/dL (3.4-5.0); BUN Blood Urea Nitrogen 11 mg/dL (7-18); Bicarbonate 27 mEq/L (21-32); Bilirubin Direct 0.1 mg/dL (0-0.2); Bilirubin Indirect, Calculated 0.2 mg/dL (0.2-0.8); Bilirubin Total 0.3 mg/dL (0.2-1.0); Glomerular Filtration Rate 114 ml/min (=/>90); Glucose Level 127 mg/dL (74-106); Potassium 3.6 mEq/L (3.5-5.1); Protein, Total 8.3 g/dL (6.4-8.2); Sodium Level 139 mEq/L (136-145)
[2023-08-24 20:28] LABS: Alkaline Phosphatase 76 U/L (45-117)
--- NOTE | 2023-08-24 21:37 | EDPHYS ---
Physician Documentation [facility] Name: Elias Dillard Age: 37 yrs Sex: Male : 1985 Arrival Date: 08/24/2023 Time: 19:30 Bed 16 Private MD: ED Physician Ivan Barone HPI: 08/24 19:45 This 37 yrs old Male presents to ER via Unassigned with complaints of suicidal ms3 ideation/ alcohol intoxication. 19:45 37-year-old male presents to the emergency department via [facility] for suicidal ms3 ideation. probation officer Marcia Guerrero states patient called the crisis hotline wanting help. Patient stated that time he had a problem with alcohol and also was wanting to kill himself. Patient stated that he has been feeling suicidal for a while and knows he needs help. EMS notes patient has been drinking alcohol tonight. Patient states he drank quite a bit. Patient denies suicidal ideations at this time. Historical: - Allergies: 20:07 Morphine; ha1 - Home Meds: 20:07 Prozac Oral [Active]; Seroquel Oral [Active]; ha1 - PMHx: 20:07 Depression; ha1 - PSHx: 20:07 Appendectomy; ha1 - Immunization history:: Adult Immunizations unknown. - Social history:: Smoking status: unknown. ROS: 19:45 Constitutional: Negative for fever, and chills. Neck: Negative for injury, pain, and ms3 swelling, Cardiovascular: Negative for chest pain, and palpitations. Respiratory: Negative for shortness of breath, cough, wheezing, and pleuritic chest pain, Abdomen/GI: Negative for abdominal pain, nausea, vomiting, diarrhea, and constipation, MS/Extremity: Negative for injury and deformity, Skin: Negative for injury, rash, and discoloration, 19:45 All other systems are negative, Exam: 19:45 Constitutional: This is a well developed, well nourished patient who is awake, alert, ms3 and in no acute distress. Head/Face: Normocephalic, atraumatic. Neck: Trachea midline, no cervical lymphadenopathy. Supple, full range of motion without nuchal rigidity, or vertebral point tenderness. No Meningismus. Chest/axilla: Normal chest wall appearance and motion. Nontender with no deformity. Cardiovascular: Regular rate and rhythm with a normal S1 and S2. No gallops, murmurs, or rubs. Normal PMI, no JVD. No pulse deficits. Respiratory: Lungs have equal breath sounds bilaterally, clear to auscultation and percussion. No rales, rhonchi or wheezes noted. No increased work of breathing, no retractions or nasal flaring. Abdomen/GI: Soft, non-tender, with normal bowel sounds. No distension or tympany. No guarding or rebound. No evidence of tenderness throughout. Skin: Warm, dry with normal turgor. Normal color with no rashes, no lesions, and no evidence of cellulitis. MS/ Extremity: Pulses equal, no cyanosis. Neurovascular intact. Full, normal range of motion. 19:45 Neuro: slurring speech, slow to respond, 21:09 ECG was reviewed by the Attending Physician. ms3 Vital Signs: 19:47 BP 162 / 102; Pulse 90; Resp 17 S; Temp 97.9; Pulse Ox 100% on R/A; Weight 79.38 kg; ha1 20:50 BP 156 / 105; Pulse 95; Resp 18 S; Pulse Ox 100% ; ha1 21:50 BP 152 / 102; Pulse 95; Resp 17 S; Pulse Ox 100% on R/A; ha1 08/25 00:20 BP 156 / 102; Pulse 98; Resp 17 S; Pulse Ox 100% on R/A; ha1 01:30 BP 143 / 92; Pulse 92; Resp 17 S; Pulse Ox 98% on R/A; ha1 02:30 BP 145 / 95; Pulse 93; Resp 18 S; Pulse Ox 98% on R/A; ha1 06:00 BP 142 / 86; Pulse 92; Resp 17 S; Pulse Ox 97% on R/A; ha1 14:58 BP 162 / 102; Pulse 96; Resp 18; Pulse Ox 100% on R/A; cm10 MDM: 08/24 19:34 Patient medically screened. kb 19:45 Differential diagnosis: acute psychotic break, depression, Alcohol intoxication. ms3 21:08 Transition of care: After a detail discussion of the patient's case, care is ms3 transferred to Moise Williamson MD. 08/25 13:46 Data reviewed: vital signs, nurses notes. ED course: Patient now no longer intoxicated sp3 and after [facility] evaluation, patient contracts for safety and follow-up outpatient. Patient no longer suicidal, homicidal or psychotic.. 08/24 19:44 Order name: Acetaminophen; Complete Time: 20:42 ms3 08/24 19:44 Order name: BMP; Complete Time: 20:42 ms3 08/24 19:44 Order name: CBC with Diff; Complete Time: 20:42 ms3 08/24 19:44 Order name: Ethanol; Complete Time: 20:42 ms3 08/24 19:44 Order name: Hepatic Function; Complete Time: 20:42 ms3 08/24 19:44 Order name: Protime (+inr); Complete Time: 20:42 ms3 08/24 19:44 Order name: Ptt, Activated; Complete Time: 20:42 ms3 08/24 19:44 Order name: Salicylate; Complete Time: 20:42 ms3 08/24 19:44 Order name: Urine Drug Screen; Complete Time: 00:37 ms3 08/25 01:52 Order name: ETOH Level; Complete Time: 03:08 rv1 08/25 06:41 Order name: ETOH Level: please collect at 0700; Complete Time: 08:15 ha1 08/25 08:55 Order name: ETOH Level; Complete Time: 09:42 em1 08/25 10:23 Order name: ETOH Level; Complete Time: 14:03 ds4 08/24 19:44 Order name: EKG; Complete Time: 19:45 ms3 08/24 19:44 Order name: EKG - Nurse/Tech; Complete Time: 20:43 ms3 08/24 19:44 Order name: IV Saline Lock; Complete Time: 20:30 ms3 08/24 19:44 Order name: Labs collected and sent; Complete Time: 20:30 ms3 08/24 19:44 Order name: O2 Per Protocol; Complete Time: 20:30 ms3 08/24 19:44 Order name: O2 Sat Monitoring; Complete Time: 20:30 ms3 08/24 19:44 Order name: Suicide Screening ([place]); Complete Time: 20:30 ms3 EC/24 21:09 Rate is 93 beats/min. Rhythm is regular. QRS [place] is Normal. MS interval is normal. QRS ms3 interval is normal. Clinical impression: Normal ECG. Interpreted by me. Reviewed by me. Administered Medications: 08/25 02:05 Drug: Nicotine Transdermal Patch 14 mg/24 hr 1 patches Transdermal once {Note: right ha1 upper arm .} Route: Transdermal; Site: anterior chest wall; 05:44 Follow up: Response: No adverse reaction ha1 04:30 Drug: NS 0.9% IV 1000 ml IV at 1000 ml once Route: IV; Rate: 1000 ml; Site: left ha1 antecubital; 05:44 Follow up: Response: No adverse reaction; IV Status: Completed infusion; IV Intake: ha1 1000ml Disposition Summary: 08/25/23 13:48 Discharge Ordered Notes: Location: Home sp3 Condition: Stable(08/25/23 13:48) sp3 Diagnosis - Suicidal ideation, alcohol intoxication now resolved sp3 Followup: sp3 - With: Private Physician - When: Upon discharge from the Emergency Department - Reason: Continuance of care Discharge Instructions: - Discharge Summary Sheet sp3 - Suicidal Feelings: How to Help Yourself sp3 Forms: - Medication Reconciliation Form sp3 - Thank You Letter sp3 - Antibiotic Education sp3 - Prescription Opioid Use sp3 - Patient Portal Instructions sp3 - Leadership Thank You Letter sp3 Signatures: Dispatcher [employer] EDMS Maryan Marroquin, WELL LOGGER-C WELL LOGGER-Ckb Moise Williamson MD MD rn Sims, Marcus, DO DO ms3 Ivan Barone MD MD sp3 Gaby Castillo, RN RN ha1 Corrections: (The following items were deleted from the chart) 13:47 08/24 21:37 rn sp3 08/25 13:47 08/24 21:37 Psych Facility rn sp3 08/25 13:47 08/24 21:37 Higher level of care rn sp3 08/25 13:47 08/24 21:37 Stable rn sp3 08/25 13:47 08/24 21:37 new rn sp3 08/25 13:47 08/24 21:37 have improved rn sp3 08/25 13:47 08/24 21:37 Suicidal ideations rn sp3 08/25 13:47 08/24 21:37 Alcohol abuse with intoxication rn sp3
--- NOTE | 2023-08-24 21:37 | ER ---
Nurse's Notes [facility] Name: Elias Dillard Age: 37 yrs Sex: Male : 1985 Arrival Date: 08/24/2023 Time: 19:30 Bed 16 Private MD: Diagnosis: Suicidal ideation, alcohol intoxication now resolved Presentation: 08/24 19:35 Ebola Screen: No symptoms or risks identified at this time. Initial Sepsis Screen: Does ha1 the patient meet any 2 criteria? No. Patient's initial sepsis screen is negative. Does the patient have a suspected source of infection? No. Patient's initial sepsis screen is negative. Risk Assessment: Do you want to hurt yourself or someone else? Patient reports no desire to harm self or others. 19:50 Acuity: IVAN 3 ha1 20:10 Chief complaint: Patient states: pt denies suicidal ideation upon arrival. EMS states: rv pt stated that he is trying to hurt himself to the police officers. + ETOH. Coronavirus screen: At this time, the client does not indicate any symptoms associated with coronavirus-19. Onset of symptoms was August 24, 2023. 20:10 Method Of Arrival: EMS: [facility] rv 08/25 04:00 Acuity: IVNA 2 rv Triage Assessment: 08/24 20:12 General: Appears unkempt, Behavior is agitated, intoxicated. Smells of alcohol. Pain: rv Denies pain. Neuro: Level of Consciousness is awake, alert, Oriented to person, place. Cardiovascular: Capillary refill < 3 seconds Patient's skin is warm and dry. Respiratory: Airway is patent Respiratory effort is even, unlabored. Derm: Skin is intact. Historical: - Allergies: 20:07 Morphine; ha1 - Home Meds: 20:07 Prozac Oral [Active]; Seroquel Oral [Active]; ha1 - PMHx: 20:07 Depression; ha1 - PSHx: 20:07 Appendectomy; ha1 - Immunization history:: Adult Immunizations unknown. - Social history:: Smoking status: unknown. Screenin:35 [facility] ED Fall Risk Assessment (Adult) History of falling in the last 3 months, ha1 including since admission No falls in past 3 months (0 pts) Confusion or Disorientation Yes (5 pts) Intoxicated or Sedated Yes (3 pts) Impaired Gait No (0 pts) Mobility Assist Device Used No (0 pt) Altered Elimination No (0 pt) Score/Fall Risk Level 3 or more points = High Risk Oriented to surroundings, Maintained a safe environment, Educated pt \\T\\ family on fall prevention, incl call for assistance when getting out of bed, Hourly rounding (assess needs \\T\\ fall precautionary measures) done. Abuse screen: Denies threats or abuse. Denies injuries from another. Nutritional screening: No deficits noted. Tuberculosis screening: No symptoms or risk factors identified. Assessment: 19:30 General: Appears uncomfortable, Behavior is calm, drowsy. Pain: Denies pain. Neuro: ha1 Reports Pt. denies suicidal ideation . Neuro: Level of Consciousness is awake, alert, obeys commands, lethargic, Oriented to person, place, time, pATIENT REPORTS DRINKING MULTIPLE BEERS TONIGHT. Cardiovascular: Capillary refill < 3 seconds Patient's skin is warm and dry. Respiratory: Airway is patent Respiratory effort is even, unlabored, Respiratory pattern is regular, symmetrical. GI: No signs and/or symptoms were reported involving the gastrointestinal system. Abdomen is flat, non-distended. : No signs and/or symptoms were reported regarding the genitourinary system. Derm: Skin is pink, warm \\T\\ dry. Musculoskeletal: Circulation, motion, and sensation intact. Range of motion: intact in all extremities. 20:30 Reassessment: eyes closed. ha1 20:30 Respiratory: Airway is patent Respiratory effort is even, unlabored, Respiratory ha1 pattern is regular, symmetrical. 21:30 Reassessment: eyes closed. ha1 21:30 Respiratory: Airway is patent Respiratory effort is even, unlabored, Respiratory ha1 pattern is regular, symmetrical. 22:30 Reassessment: eyes closed. Respiratory: Airway is patent Respiratory effort is even, ha1 unlabored, Respiratory pattern is regular, symmetrical. 08/25 04:00 Reassessment: Patient and/or family updated on plan of care and expected duration. Pain ha1 level reassessed. Patient is alert, oriented x 3, equal unlabored respirations, skin warm/dry/pink. 05:00 Reassessment: Patient and/or family updated on plan of care and expected duration. Pain ha1 level reassessed. Patient is alert, oriented x 3, equal unlabored respirations, skin warm/dry/pink. 06:00 Reassessment: Patient and/or family updated on plan of care and expected duration. Pain ha1 level reassessed. Patient is alert, oriented x 3, equal unlabored respirations, skin warm/dry/pink. Patient denies pain at this time. Patient states feeling better. Patient states symptoms have improved. 07:00 Reassessment: No changes from previously documented assessment. Patient and/or family ko1 updated on plan of care and expected duration. Pain level reassessed. Patient is alert, oriented x 3, equal unlabored respirations, skin warm/dry/pink. Patient denies pain at this time. 12:06 Reassessment: [facility] screener at bedside. cm10 12:30 Reassessment: No changes from previously documented assessment. Patient and/or family cm10 updated on plan of care and expected duration. Pain level reassessed. Patient is alert, oriented x 3, equal unlabored respirations, skin warm/dry/pink. 13:30 Reassessment: No changes from previously documented assessment. Patient and/or family cm10 updated on plan of care and expected duration. Pain level reassessed. Patient is alert, oriented x 3, equal unlabored respirations, skin warm/dry/pink. 14:30 Reassessment: No changes from previously documented assessment. Patient and/or family cm10 updated on plan of care and expected duration. Pain level reassessed. Patient is alert, oriented x 3, equal unlabored respirations, skin warm/dry/pink. Psych: 08/24 19:30 Allison Suicide Severity Screening: In the past month, have you wished you were ha1 or wished you could go to sleep and not wake up? Patient responds "No." "In the past month, have you actually had any thoughts of killing yourself?" Patient responds "no." "In your lifetime, have you ever done anything, started to do anything, or prepared to do anything to end your life?" Patient responds "no.". Subjective: Patient's mood is sad. Objective: Patient is cooperative, Speech is normal. Interventions: Removed personal items and placed in bag. Patient placed in hospital gown. Searched person for dangerous items. Safety Checks: Personal items have been removed. Pt has been placed in a hallway bed/chair. 20:00 Patient uses beers. do not remember the number of beers. ha1 08/25 14:59 Commitment: Pt discharged and will follow-up outpatient on Sunday. cm10 Vital Signs: 08/24 19:47 BP 162 / 102; Pulse 90; Resp 17 S; Temp 97.9; Pulse Ox 100% on R/A; Weight 79.38 kg; ha1 20:50 BP 156 / 105; Pulse 95; Resp 18 S; Pulse Ox 100% ; ha1 21:50 BP 152 / 102; Pulse 95; Resp 17 S; Pulse Ox 100% on R/A; ha1 08/25 00:20 BP 156 / 102; Pulse 98; Resp 17 S; Pulse Ox 100% on R/A; ha1 01:30 BP 143 / 92; Pulse 92; Resp 17 S; Pulse Ox 98% on R/A; ha1 02:30 BP 145 / 95; Pulse 93; Resp 18 S; Pulse Ox 98% on R/A; ha1 06:00 BP 142 / 86; Pulse 92; Resp 17 S; Pulse Ox 97% on R/A; ha1 14:58 BP 162 / 102; Pulse 96; Resp 18; Pulse Ox 100% on R/A; cm10 ED Course: 08/24 19:30 Patient arrived in ED. rv1 19:30 Arm band placed on right wrist. ha1 19:30 Patient has correct armband on for positive identification. Placed in gown. Bed in low ha1 position. Call light in reach. Side rails up X 1. in front of nurse station. 19:34 Luis Davidson DO is Attending Physician. kb 19:50 Triage completed. ha1 20:15 Inserted saline lock: 20 gauge in left antecubital area, using aseptic technique. Blood ha1 collected. IV inserted by Francisca Ford. 20:30 Urine Drug Screen Sent. ha1 20:38 Gaby Castillo, VANESA is Primary Nurse. ha1 21:10 Attending Physician role handed off by Luis Davidson DO ms3 21:10 Moise Williamson MD is Attending Physician. ms3 08/25 02:06 ETOH Level Sent. ha1 07:35 Attending Physician role handed off by Moise Williamson MD sp3 07:35 Ivan Barone MD is Attending Physician. sp3 09:15 ETOH Level Sent. ds4 10:30 ETOH Level Sent. ds4 10:41 ETOH Level Sent. ds4 14:59 No provider procedures requiring assistance completed. IV discontinued, intact, cm10 bleeding controlled, No redness/swelling at site. Pressure dressing applied. 15:00 Provided Education on: Follow-up procedures.. cm10 Administered Medications: 02:05 Drug: Nicotine Transdermal Patch 14 mg/24 hr 1 patches Transdermal once {Note: right ha1 upper arm .} Route: Transdermal; Site: anterior chest wall; 05:44 Follow up: Response: No adverse reaction ha1 04:30 Drug: NS 0.9% IV 1000 ml IV at 1000 ml once Route: IV; Rate: 1000 ml; Site: left ha1 antecubital; 05:44 Follow up: Response: No adverse reaction; IV Status: Completed infusion; IV Intake: ha1 1000ml Medication: 08/24 22:41 VIS not applicable for this client. ha1 Intake: 08/25 05:44 IV: 1000ml; Total: 1000ml. ha1 Outcome: 08/24 21:37 ER care complete, transfer ordered by . rn 08/25 13:48 Discharge ordered by . sp3 14:59 Discharged to home ambulatory, with significant other, cm10 14:59 Condition: good 14:59 Discharge instructions given to patient, Instructed on discharge instructions, follow up and referral plans. Demonstrated understanding of instructions, follow-up care, calling [facility] on Sunday to set up an outpatient appointment. 15:01 Patient left the ED. cm10 Signatures: Maryan Marroquin, ORCHARD PRUNER-C ORCHARD PRUNER-Ckb Moise Williamson MD MD rn Swanson, Donovan ds4 Baljinder Swan RN RN Luis Rao DO DO ms3 Ivan Barone MD MD sp3 Gaby Castillo RN RN ha1 Shelby Jameson RN RN ko1 Lilliana Smith rv1 Cristy Langley RN RN cm10 Corrections: (The following items were deleted from the chart) 06:38 08/24 19:30 Neuro: Level of Consciousness is awake, alert, obeys commands, lethargic, ha1 Oriented to person, place, time, pATIENT REPORTS DRINKING MULTIPLE BEERS TONIGHT. ha1 08/25 09:52 09:51 Reassessment: No changes from previously documented assessment. Patient and/or ko1 family updated on plan of care and expected duration. Pain level reassessed. Patient is alert, oriented x 3, equal unlabored respirations, skin warm/dry/pink. Patient denies pain at this time. ko1
[2023-08-24 21:52] LABS: Barbiturates NEGATIVE (NEGATIVE); Benzodiazepines NEGATIVE (NEGATIVE); Cocaine NEGATIVE (NEGATIVE); METHAMPHETAM NEGATIVE (NEGATIVE); Methadone NEGATIVE (NEGATIVE); Opiates NEGATIVE (NEGATIVE); Phencyclidine NEGATIVE (NEGATIVE); THC Cannibis NEGATIVE (NEGATIVE)
[2023-08-25] MEDS ORDERED: NICOTINE 21 MG/PAT TD ONE (01:52)
[2023-08-25] MEDS ORDERED: NA CHLORIDE 0.9% 1,000 ML ONE (04:36)
[2023-08-25 15:17] VITALS: TEMP 97.9
[2023-08-25 15:38] VITALS: BP 162/102; O2SAT 100
--- NOTE | 2023-08-27 16:54 | EKG ---
Test Date: 2023-08-24 Test Time: 19:51:07 Director Of Business Services: ASHLEY MEASUREMENT RESULTS: Intervals: Rate: 93 RI: 180 QRSD: 104 QT: 372 QTc: 462 [place]: P: 58 RI: 180 QRS: 57 T: 66 INTERPRETIVE STATEMENTS: Normal sinus rhythm Normal ECG Compared to ECG 02/06/2023 03:04:08 No significant changes Electronically Signed On 08-27-23 16:52:12 FORECLOSURE CLERK by Wellington Vasquez
== END 2023-08-25 15:01 | disposition home or self-care (01) ==
LOC: ER 19:30
DX: R45.851 Suicidal ideations (principal); F32.A Depression, unspecified; Z88.5 Allergy status to narcotic agent
CPT/HCPCS: 36415; 80048; 80076; 80143; 80179; 80307; 82077; 85025; 85610; 85730; 93005; 96360; 99285; J7030